=== PATIENT | male | born 1980 | race Caucasian/White ===

== ENCOUNTER 2017-05-20 18:24 | Emergency (ER) | payer BC ==
[2017-05-20 18:33] VITALS: BP 118/86
[2017-05-20] MEDS ORDERED: Sodium Chloride 0.9% 1,000 ML IV ONE (18:48)
--- NOTE | 2017-05-20 19:15 | EDM.PDOCBH ---
ED HPI GENERAL MEDICAL PROBLEM - General Chief Complaint: Behavioral/Psych Stated Complaint: MIN AMBULANCE Time Seen by Provider: 05/20/17 18:53 Source of Information: Reports: Patient, EMS, Family History Limitations: Reports: Intoxication - History of Present Illness INITIAL COMMENTS - FREE TEXT/NARRATIVE: The patient presents by [facility] for a possible overdose. He says today he got in an argument with his partner and he drank some alcohol. He also took some pills. He texted his mom he took 20 xanax and 209 tablets of metoprolol. Ambulance was called and they found out it was more like 20 xanax and 50 of metoprolol. When I went to talk to the patient he said it was more like 3 of xanax and no metoprolol. He says he was being dramatic. He was not trying to hurt himself. He has no headache, fever, chills, cough, chest pain, shortness of breath, abdominal pain, nausea or vomiting. He does admit to drinking to much alcohol. He drank some vodka and other alcohol. Onset: Gradual Duration: Hour(s): Severity: Moderate Improves with: Reports: None Worsens with: Reports: None Associated Symptoms: Reports: No Other Symptoms Treatments [employer]: Reports: IV/IO - Related Data Allergies Allergy/AdvReac Type Severity Reaction Status Date / Time No Known Allergies Allergy Verified 05/20/17 18:28 Home Meds: Home Meds Emtricitab/Rilpivirine/Tenofov [Complera] 1 tab PO DAILY 10/08/15 [History] Fish Oil/Borage/Flax/Om3,6,9#1 [[place]co 3-6-9 1,200 mg Softgel] 1 tab PO DAILY 07/20 [History] Metoprolol Succinate 50 mg PO BID 10/08/15 [History] Multivitamin [Gummi Bear Multivitamin] 1 tab PO DAILY 10/08/15 [History] Ubidecarenone [Co Q-10] 100 mg PO DAILY 10/08/15 [History] atorvaSTATin [Lipitor] 20 mg PO DAILY 10/08/15 [History] Escitalopram [Lexapro] 10 mg PO DAILY 05/20/17 [History] Past Medical History Cardiovascular History: Reports: High Cholesterol, Hypertension Other Gastrointestinal History: colitis Psychiatric History: Reports: Addiction, Depression Immunologic History: Reports: AIDS, HIV - Infectious Disease History Infectious Disease History: Reports: HIV-Human Immunodeficiency Virus - Past Surgical History GI Surgical History: Reports: Hernia Repair/Other Social & Family History - Family History Cardiac: Reports: High Cholesterol, Hypertension, MA - Tobacco Use Smoking Status *Q: Current Every Day Smoker Years of Tobacco use: 25 Packs/Tins Daily: 0.5 - Caffeine Use Caffeine Use: Reports: None - Alcohol Use Days Per Week of Alcohol Use: 7 Number of Drinks Per Day: 15 Total Drinks Per Week: 105 - Recreational Drug Use Recreational Drug Use: Yes Drug Use in Last 12 Months: Yes Recreational Drug Type: Reports: Marijuana/Hashish Recreational Drug Use Frequency: Daily ED ROS GENERAL - Review of Systems Review Of Systems: See Below Constitutional: Reports: No Symptoms HEENT: Reports: No Symptoms Respiratory: Reports: No Symptoms Cardiovascular: Reports: No Symptoms Endocrine: Reports: No Symptoms GI/Abdominal: Reports: No Symptoms : Reports: No Symptoms Musculoskeletal: Reports: No Symptoms Skin: Reports: No Symptoms Neurological: Reports: No Symptoms ED EXAM, BEHAVIORAL HEALTH - Physical Exam Exam: See Below Exam Limited By: Intoxication General Appearance: Alert, No Apparent Distress Ears: Normal External Exam Nose: Normal Inspection Head: Atraumatic, Normocephalic Neck: Normal Inspection Respiratory/Chest: No Respiratory Distress, Lungs Clear, Normal Breath Sounds Cardiovascular: Regular Rate, Rhythm, No Edema, No Murmur GI/Abdominal: Soft, Non-Tender, No Organomegaly, No Mass Back Exam: Normal Inspection Extremities: Normal Inspection Neurological: Alert, No Motor/Sensory Deficits, Oriented x 3, Other (Slurred speech) COURSE, BEHAVIORAL HEALTH COMP - Course Vital Signs: Last Vital Signs Temp 97.9 F 05/20/17 18:28 Pulse 77 05/20/17 18:28 Resp 15 05/20/17 18:28 BP 118/86 05/20/17 18:28 Pulse Ox 95 05/20/17 18:28 Orders, Labs, Meds: Active Orders 24 hr Category Date Time Status Blood Glucose Check, Bedside [RC] ONETIME Care 05/20/17 18:53 Active Cardiac Monitoring [RC] . DIRECTED Care 05/20/17 18:53 Active EKG 12 Lead [EKG Documentation Completion] [RC] STAT Care 05/20/17 18:47 Active Peripheral IV Care [RC] . DIRECTED Care 05/20/17 20:24 Ordered Chest 1V Frontal [CR] Stat Exams 05/20/17 18:43 Taken Sodium Chloride 0.9% [Saline Flush] Med 05/20/17 20:23 Ordered 10 ml FLUSH ASDIRECTED PRN Peripheral IV Insertion Adult [OM.PC] Routine Oth 05/20/17 20:23 Ordered Medication Orders Sodium Chloride (Saline Flush) 10 ml FLUSH ASDIRECTED PRN PRN Reason: Keep Vein Open Laboratory Tests 05/20/17 05/20/17 05/20/17 Range/Units 18:50 18:50 18:50 WBC 8.67 (4.23-9.07) K/mm3 RBC 5.10 (4.63-6.08) M/mm3 Hgb 16.0 (13.7-17.5) gm/L Hct 47.7 (40.1-51.0) % MCV 93.5 H (79.0-92.2) fl MCH 31.4 (25.7-32.2) pg MCHC 33.5 (32.2-35.5) g/dl RDW Std Deviation 47.2 H (35.1-43.9) fL Plt Count 182 (163-337) K/mm3 MPV 11.2 (9.4-12.3) fl Neut % (Auto) 53.8 (34.0-67.9) % Lymph % (Auto) 33.1 (21.8-53.1) % O'Brien % (Auto) 8.0 (5.3-12.2) % Eos % (Auto) 4.7 (0.8-7.0) Baso % (Auto) 0.2 (0.1-1.2) % Neut # (Auto) 4.66 (1.78-5.38) K/mm3 Lymph # (Auto) 2.87 (1.32-3.57) K/mm3 O'Brien # (Auto) 0.69 (0.30-0.82) K/mm3 Eos # (Auto) 0.41 (0.04-0.54) K/mm3 Baso # (Auto) 0.02 (0.01-0.08) K/mm3 Sodium 143 (136-145) mEq/L Potassium 4.0 (3.5-5.1) mEq/L Chloride 108 H (98-107) mEq/L Carbon Dioxide 25 (21-32) mEq/L Anion Gap 14.0 (5-15) BUN 9 (7-18) mg/dL Creatinine 1.2 (0.7-1.3) mg/dL Est Cr Clr Drug Dosing 82.65 mL/min Estimated GFR (MDRD) > 60 (>60) mL/min BUN/Creatinine Ratio 7.5 L (14-18) Glucose 94 (74-106) mg/dL POC Glucose (70-105) mg/dL Calcium 8.6 (8.5-10.1) mg/dL Total Bilirubin 0.4 (0.2-1.0) mg/dL AST 47 H (15-37) U/L ALT 70 H (16-63) U/L Alkaline Phosphatase 92 (46-116) U/L Total Protein 7.6 (6.4-8.2) g/dl Albumin 3.7 (3.4-5.0) g/dl Globulin 3.9 gm/dL Albumin/Globulin Ratio 1.0 (1-2) Salicylates (2.8-20) mg/dL Urine Opiates Screen Negative (NEGATIVE) Ur Buprenorphine Scrn Negative (NEGATIVE) Ur Oxycodone Screen Negative (NEGATIVE) Urine Methadone Screen Negative (NEGATIVE) Ur Propoxyphene Screen Negative (NEGATIVE) Acetaminophen 0 L (10-30) ug/mL Ur Barbiturates Screen Negative (NEGATIVE) Ur Tricyclics Screen Negative (NEGATIVE) Ur Phencyclidine Scrn Negative (NEGATIVE) Ur Amphetamine Screen Negative (NEGATIVE) U Methamphetamines Scrn Negative (NEGATIVE) U Benzodiazepines Scrn Presumptive positive H (NEGATIVE) U Cocaine Metab Screen Negative (NEGATIVE) U Marijuana (THC) Screen Presumptive positive H (NEGATIVE) Ethyl Alcohol 0.19 (0.00) gm% 05/20/17 05/20/17 Range/Units 18:50 19:19 WBC (4.23-9.07) K/mm3 RBC (4.63-6.08) M/mm3 Hgb (13.7-17.5) gm/L Hct (40.1-51.0) % MCV (79.0-92.2) fl MCH (25.7-32.2) pg MCHC (32.2-35.5) g/dl RDW Std Deviation (35.1-43.9) fL Plt Count (163-337) K/mm3 MPV (9.4-12.3) fl Neut % (Auto) (34.0-67.9) % Lymph % (Auto) (21.8-53.1) % O'Brien % (Auto) (5.3-12.2) % Eos % (Auto) (0.8-7.0) Baso % (Auto) (0.1-1.2) % Neut # (Auto) (1.78-5.38) K/mm3 Lymph # (Auto) (1.32-3.57) K/mm3 O'Brien # (Auto) (0.30-0.82) K/mm3 Eos # (Auto) (0.04-0.54) K/mm3 Baso # (Auto) (0.01-0.08) K/mm3 Sodium (136-145) mEq/L Potassium (3.5-5.1) mEq/L Chloride (98-107) mEq/L Carbon Dioxide (21-32) mEq/L Anion Gap (5-15) BUN (7-18) mg/dL Creatinine (0.7-1.3) mg/dL Est Cr Clr Drug Dosing mL/min Estimated GFR (MDRD) (>60) mL/min BUN/Creatinine Ratio (14-18) Glucose (74-106) mg/dL POC Glucose 85 (70-105) mg/dL Calcium (8.5-10.1) mg/dL Total Bilirubin (0.2-1.0) mg/dL AST (15-37) U/L ALT (16-63) U/L Alkaline Phosphatase (46-116) U/L Total Protein (6.4-8.2) g/dl Albumin (3.4-5.0) g/dl Globulin gm/dL Albumin/Globulin Ratio (1-2) Salicylates 4.1 (2.8-20) mg/dL Urine Opiates Screen (NEGATIVE) Ur Buprenorphine Scrn (NEGATIVE) Ur Oxycodone Screen (NEGATIVE) Urine Methadone Screen (NEGATIVE) Ur Propoxyphene Screen (NEGATIVE) Acetaminophen (10-30) ug/mL Ur Barbiturates Screen (NEGATIVE) Ur Tricyclics Screen (NEGATIVE) Ur Phencyclidine Scrn (NEGATIVE) Ur Amphetamine Screen (NEGATIVE) U Methamphetamines Scrn (NEGATIVE) U Benzodiazepines Scrn (NEGATIVE) U Cocaine Metab Screen (NEGATIVE) U Marijuana (THC) Screen (NEGATIVE) Ethyl Alcohol (0.00) gm% Medications Generic Name Dose Route Start Last Admin Trade Name Freq PRN Reason Stop Dose Admin Sodium Chloride 10 ml 05/20/17 20:23 Saline Flush FLUSH ASDIRECTED PRN Keep Vein Open Discontinued Medications Generic Name Dose Route Start Last Admin Trade Name Freq PRN Reason Stop Dose Admin Calcium Gluconate 3 gm 05/20/17 20:19 Calcium Gluconate IV 05/20/17 20:20 ONETIME ONE Charcoal 90 gm 05/20/17 20:15 Actidose-Aqua PO 05/20/17 20:16 ONETIME ONE Sodium Chloride 1,000 mls @ 999 mls/hr 05/20/17 18:48 05/20/17 18:57 Normal Saline IV 05/20/17 19:48 999 mls/hr ONETIME ONE Administration Re-Assessment/Re-Exam: I ordered an IV NS, EKG, CXR, and labs. Poison control was contacted and the big concern is the metoprolol he may of may not have taken. His CXR looks good. His EKG shows a NSR with no acute changes. His CBC is negative. His point of care glucose is 85. His glucose on the CMP was 94. His AST was slightly elevated at 47. His ALT was elevated at 70. His salicylates and acetaminophen is negative. He was presumptive positive for benzos and marijuana. His EOTH was 0.19. My nurse did a count and he is missing 34 of his metoprolol. He should only have 14 missing so he could have taken 20. There were other metoprolol missing from prior prescriptions. He also had all of his 180 xanax missing. He got that prescription back in November. Poison control recommended activated charcoal and calcium gluconate 3 grams IV. I talked with Dr Valdivia and she agreed to the admission. I also ordered another IV. Departure - Departure Time of Disposition: 20:35 Disposition: Admitted As Inpatient 64 Condition: Serious Clinical Impression: Depressive disorder Alcohol intoxication Qualifiers: Complication of substance-induced condition: uncomplicated Qualified Code(s): F10.120 - Alcohol abuse with intoxication, uncomplicated Drug overdose Qualifiers: Encounter type: initial encounter Injury intent: intentional self-harm Qualified Code(s): T50.902A - Poisoning by unspecified drugs, medicaments and biological substances, intentional self-harm, initial encounter - Discharge Information Forms: ED Department Discharge - My Orders Last 24 Hours: My Active Orders 05/20/17 20:23 Sodium Chloride 0.9% [Saline Flush] 10 ml FLUSH ASDIRECTED PRN Peripheral IV Insertion Adult [OM.PC] Routine 05/20/17 20:24 Peripheral IV Care [RC] . DIRECTED - Assessment/Plan Last 24 Hours: My Active Orders 05/20/17 20:23 Sodium Chloride 0.9% [Saline Flush] 10 ml FLUSH ASDIRECTED PRN Peripheral IV Insertion Adult [OM.PC] Routine 05/20/17 20:24 Peripheral IV Care [RC] . DIRECTED
[2017-05-20 19:31] LABS: ACETAMINOPHEN 0 ug/mL (10-30)
[2017-05-20] MEDS ORDERED: Activated Charcoal/Water Susp 50 GM/240 ML Tube PO ONE (20:15)
[2017-05-20] MEDS ORDERED: Calcium Gluconate 10% 1 GM/10 ML SDV IV ONE (20:19)
[2017-05-20] MEDS ORDERED: Sodium Chloride 0.9% 10 ML Syringe FLUSH PRN (20:23)
[2017-05-20] MEDS ORDERED: Sodium Chloride 0.9% 50 ML ONE (20:38)
[2017-05-20] MEDS ORDERED: Sodium Chloride 0.9% 100 ML ONE (20:40)
[2017-05-20] MEDS ORDERED: Sodium Chloride 0.9% 1,000 ML IV SCH ×2 (20:45→22:00)
[2017-05-20] MEDS ORDERED: Calcium Gluconate 3 GM in Sodium Chloride 0.9% 100 ML IV ONE (20:45)
[2017-05-20] MEDS ORDERED: Activated Charcoal/Sorbitol Susp 50 GM/240 ML Bottle PO ONE (20:47)
[2017-05-20] MEDS ORDERED: EPINEPHrine 1 MG in Dextrose 5% in Water 99 ML IV SCH ×2 (22:15)
[2017-05-20] MEDS ORDERED: SODIUM CHLORIDE 0.9% IV SCH (22:15)
[2017-05-20] MEDS ORDERED: GLUCAGON HUMAN RECOMBINANT IV SCH (22:15)
[2017-05-20] MEDS ORDERED: Glucagon,Human Recombinant 1 MG Vial IV ONE (22:15)
[2017-05-20] MEDS ORDERED: Nicotine 21 MG/24 Hr Patch TRDERM SCH (22:15)
[2017-05-21] MEDS ORDERED: Albuterol 0.5% 2.5 MG/0.5 ML Neb Soln NEB SCH (02:00)
--- NOTE | 2017-05-21 07:32 | CR ---
Chest: Portable view of the chest was obtained. Comparison: Prior chest x-ray of 11/28/15. Heart size and mediastinum are normal. Lungs are clear. Bony structures are grossly intact. Impression: 1. Nothing acute is identified on portable chest x-ray. Diagnostic code #1
[2017-05-21] MEDS ORDERED: Enoxaparin 40 MG/0.4 ML Syringe SUBCUT SCH (09:00)
== END 2017-05-21 00:18 | disposition critical access hospital (66) ==
LOC: JD.ED 18:24
DX: T42.4X2A Poisoning by benzodiazepines, intentional self-harm, initial encounter (principal); T44.7X2A Poisoning by beta-adrenoreceptor antagonists, intentional self-harm, initial encounter; F10.120 Alcohol abuse with intoxication, uncomplicated; E78.00 Pure hypercholesterolemia, unspecified; B20 Human immunodeficiency virus [HIV] disease; I10 Essential (primary) hypertension; F17.210 Nicotine dependence, cigarettes, uncomplicated; Z79.899 Other long term (current) drug therapy
CPT/HCPCS: 36415; 71045; 80053; 80306; 82962; 85025; 93005; 96360; 96361; 96365; 96366; 99285; G0480; J0610; J7030; J7040; J7050

== ENCOUNTER 2019-11-10 22:31 | Emergency (ER) | payer BC, OTHER ==
[2019-11-10] MEDS ORDERED: Sodium Chloride 0.9% 10 ML Syringe FLUSH PRN (22:50)
[2019-11-10] MEDS ORDERED: Sodium Chloride 0.9% 1,000 ML IV SCH (23:00)
--- NOTE | 2019-11-10 23:38 | EDM.PDOC ---
ED HPI GENERAL MEDICAL PROBLEM - General Source of Information: Reports: Patient, EMS, Family (mother), RN Notes Reviewed <Nahid Lancaster - Last Filed: 11/11/19 06:56> <Misael Segura - Last Filed: 11/11/19 08:40> - General Chief Complaint: Drug or Alcohol Abuse Stated Complaint: MIN AMBULANCE Time Seen by Provider: 11/10/19 22:41 - History of Present Illness INITIAL COMMENTS - FREE TEXT/NARRATIVE: 39 yr old male has been brought by EMS after found lying on a gravel road outside his car somewhere near [place]. He had previously texted and called family members that he "wants to " He has been drinking vodka, is reported to have also "taken a bunch of xanex, aleve PM, possibly some opiods" in addition to "acid and meth". His mother states she has been out of town for a few days but know he has been feeling depressed with hx of depression. He has been on lexapro in the past but tells us on arrival to ED he has not been taking that recently. Mother states he just found out today that one of his good friends only has 3 weeks to live so she thinks that is an extra stress for him. (Nahid Lancaster) - Related Data Allergies Allergy/AdvReac Type Severity Reaction Status Date / Time No Known Allergies Allergy Verified 05/20/17 18:28 Home Meds: Home Meds Emtricita/Rilpivirine/Tenof Df [Complera] 1 tab PO DAILY 10/08/15 [History] Fish Oil/Borage/Flax/Om3,6,9 1 [Tyler 3-6-9 1,200 mg Softgel] 1 tab PO DAILY 10/08/15 [History] Multivitamin [Gummi Bear Multivitamin] 1 tab PO DAILY 10/08/15 [History] Ubidecarenone [Co Q-10] 100 mg PO DAILY 10/08/15 [History] atorvaSTATin [Lipitor] 20 mg PO DAILY 10/08/15 [History] Escitalopram [Lexapro] 10 mg PO DAILY 05/20/17 [History] Metoprolol Tartrate 100 mg PO DAILY 05/20/17 [History] Metoprolol Tartrate 50 mg PO BEDTIME 11/04/17 [History] Past Medical History Cardiovascular History: Reports: High Cholesterol, Hypertension Gastrointestinal History: Reports: Diverticulosis Other Gastrointestinal History: colitis Genitourinary History: Reports: Acute Renal Failure Neurological History: Reports: Seizure Psychiatric History: Reports: Addiction, Anxiety, Depression, Hallucinations Immunologic History: Reports: AIDS, HIV - Infectious Disease History Infectious Disease History: Reports: HIV-Human Immunodeficiency Virus (diagnosed 2004. No history of AIDS.) - Past Surgical History Male Surgical History: Reports: Other (See Below) (hydrocele at 3 years old) <Nahid Lancaster Maximo Tony Filed: 11/11/19 06:56> Social & Family History - Family History Cardiac: Reports: High Cholesterol, Hypertension, [place] - Tobacco Use Smoking Status *Q: Current Every Day Smoker Years of Tobacco use: 20 Packs/Tins Daily: 1 - Caffeine Use Caffeine Use: Reports: Coffee - Recreational Drug Use Recreational Drug Type: Reports: Mescaline, Methamphetamine Other Recreational Drug Type: AMBULANCEE REPORTS THIS-PT DOESN'T RESPOND WITH AN ANSWER WHEN ASKED - Living Situation & Occupation Living situation: Reports: Single Occupation: Employed (taxation consultant) <TonnyNahid Marsh Tony Filed: 11/11/19 06:56> ED ROS GENERAL - Review of Systems Review Of Systems: Unable To Obtain Reason Not Obtained: altered mental status <TonnyNahid Jimenez Filed: 11/11/19 06:56> - Physical Exam Exam: See Below General Appearance: Other (awake on arrival to ED but drowsy, does answer simple questions) Ears: Normal External Exam Nose: Normal Inspection Head Exam: Atraumatic Neck: Supple Respiratory/Chest: No Respiratory Distress, Lungs Clear, Normal Breath Sounds. No: Rhonchi, Wheezing Cardiovascular: Tachycardia GI/Abdominal: Soft, Non-Tender Neuro Exam (Abbreviated): Other (pt is very drowsy, arouseable, does answer a few yes and no questions but not talkative at time of arrival to ED and initial exam) Extremities: Normal Inspection Skin Exam: Warm, Dry, Normal Color <TonnyNahid L Smitha Jimenez Filed: 11/11/19 06:56> EKG INTERPRETATION EKG Date: 11/10/19 Rhythm: Other (sinus tach, rate 101) [place]: Normal P-Wave: Present QRS: Normal ST-T: Normal <TonnyNahid coulter - Last Filed: 11/11/19 06:56> Course <Nahid Lancaster - Last Filed: 11/11/19 06:56> <Misael Segura - Last Filed: 11/11/19 08:40> - Vital Signs Last Recorded V/S: Last Vital Signs Temp 36.2 C 11/10/19 22:41 Pulse 80 11/11/19 06:24 Resp 20 11/11/19 06:24 BP 107/66 11/11/19 06:24 Pulse Ox 97 11/11/19 06:24 - Orders/Labs/Meds Orders: Active Orders 24 hr Category Date Time Status EKG 12 Lead [EKG Documentation Completion] [RC] STAT Care 11/10/19 22:49 Active Peripheral IV Care [RC] . DIRECTED Care 11/10/19 22:50 Active Consult to Case Management/Business Development Engineer [CONS] Cons 11/11/19 06:39 Active Routine Dextrose 5%-Lactated Ringers 1,000 ml Med 11/11/19 06:00 Active IV ASDIRECTED Lactated Ringers [Ringers, Lactated] 1,000 ml Med 11/11/19 02:15 Active IV ASDIRECTED Sodium Chloride 0.9% [Normal Saline] 1,000 ml Med 11/10/19 23:00 Active IV ONETIME Sodium Chloride 0.9% [Saline Flush] Med 11/10/19 22:50 Active 10 ml FLUSH ASDIRECTED PRN Peripheral IV Insertion Adult [OM.PC] Stat Oth 11/10/19 22:50 Ordered Medication Orders Sodium Chloride (Normal Saline) 1,000 mls @ 999 mls/hr IV ONETIME CRISTINA Last Admin: 11/10/19 22:59 Dose: 999 mls/hr Documented by: MEI Lactated Ringer's (Ringers, Lactated) 1,000 mls @ 500 mls/hr IV ASDIRECTED CRISTINA Last Admin: 11/11/19 03:42 Dose: 500 mls/hr Documented by: BRANDEN Dextrose/Lactated Ringer's (Dextrose 5%-Lactated Ringers) 1,000 mls @ 150 mls/hr IV ASDIRECTED CRISTINA Last Admin: 11/11/19 06:21 Dose: 150 mls/hr Documented by: BRANDEN Sodium Chloride (Saline Flush) 10 ml FLUSH ASDIRECTED PRN PRN Reason: Keep Vein Open Last Admin: 11/10/19 22:59 Dose: 10 ml Documented by: MEI Labs: Laboratory Tests 11/10/19 11/10/19 11/10/19 Range/Units 23:13 23:30 23:30 WBC 22.41 H (4.23-9.07) K/mm3 RBC 4.72 (4.63-6.08) M/mm3 Hgb 15.1 (13.7-17.5) gm/dl Hct 44.1 (40.1-51.0) % MCV 93.4 H (79.0-92.2) fl MCH 32.0 (25.7-32.2) pg MCHC 34.2 (32.2-35.5) g/dl RDW Std Deviation 43.8 (35.1-43.9) fL Plt Count 238 (163-337) K/mm3 MPV 11.0 (9.4-12.3) fl Neut % (Auto) 81.3 H (34.0-67.9) % Lymph % (Auto) 9.2 L (21.8-53.1) % Andrews % (Auto) 8.2 (5.3-12.2) % Eos % (Auto) 0.8 (0.8-7.0) Baso % (Auto) 0.2 (0.1-1.2) % Neut # (Auto) 18.23 H (1.78-5.38) K/mm3 Lymph # (Auto) 2.06 (1.32-3.57) K/mm3 Andrews # (Auto) 1.84 H (0.30-0.82) K/mm3 Eos # (Auto) 0.17 (0.04-0.54) K/mm3 Baso # (Auto) 0.04 (0.01-0.08) K/mm3 Manual Slide Review Abnormal smear Sodium 146 H (136-145) mEq/L Potassium 3.3 L (3.5-5.1) mEq/L Chloride 106 (98-107) mEq/L Carbon Dioxide 24 (21-32) mEq/L Anion Gap 19.3 H (5-15) BUN 18 (7-18) mg/dL Creatinine 1.4 H (0.7-1.3) mg/dL Est Cr Clr Drug Dosing 69.44 mL/min Estimated GFR (MDRD) 56 (>60) mL/min BUN/Creatinine Ratio 12.9 L (14-18) Glucose 111 H (74-106) mg/dL Calcium 8.0 L (8.5-10.1) mg/dL Magnesium (1.8-2.4) mg/dl Total Bilirubin 0.7 (0.2-1.0) mg/dL AST 31 (15-37) U/L ALT 24 (16-63) U/L Alkaline Phosphatase 47 (46-116) U/L Total Protein 7.0 (6.4-8.2) g/dl Albumin 4.0 (3.4-5.0) g/dl Globulin 3.0 gm/dL Albumin/Globulin Ratio 1.3 (1-2) Urine Opiates Screen Negative (OBLPCJ=385) Ur Buprenorphine Scrn Negative (CUTOFF=10) Ur Oxycodone Screen Negative (ESG9AA=433) Urine Methadone Screen Negative (FSO5VM=920) Ur Propoxyphene Screen Negative (YWELAI=255) Acetaminophen (10-30) ug/mL Ur Barbiturates Screen Negative (EFMQJH=479) Ur Tricyclics Screen Negative (XPFUCS=636) Ur Phencyclidine Scrn Negative (CUTOFF=25) Ur Amphetamine Screen Presumptive positive H (EKXELA=543) U Methamphetamines Scrn Negative (ADPSGG=076) U Benzodiazepines Scrn Presumptive positive H (YFOTDS=372) U Cocaine Metab Screen Negative (SSECWA=448) U Marijuana (THC) Screen Presumptive positive H (CUTOFF=50) Ethyl Alcohol 0.24 (0.00) gm% COVID-19 (DEANA) (NEGATIVE) 11/10/19 11/10/19 11/11/19 Range/Units 23:30 23:30 06:20 WBC (4.23-9.07) K/mm3 RBC (4.63-6.08) M/mm3 Hgb (13.7-17.5) gm/dl Hct (40.1-51.0) % MCV (79.0-92.2) fl MCH (25.7-32.2) pg MCHC (32.2-35.5) g/dl RDW Std Deviation (35.1-43.9) fL Plt Count (163-337) K/mm3 MPV (9.4-12.3) fl Neut % (Auto) (34.0-67.9) % Lymph % (Auto) (21.8-53.1) % Andrews % (Auto) (5.3-12.2) % Eos % (Auto) (0.8-7.0) Baso % (Auto) (0.1-1.2) % Neut # (Auto) (1.78-5.38) K/mm3 Lymph # (Auto) (1.32-3.57) K/mm3 Andrews # (Auto) (0.30-0.82) K/mm3 Eos # (Auto) (0.04-0.54) K/mm3 Baso # (Auto) (0.01-0.08) K/mm3 Manual Slide Review Sodium (136-145) mEq/L Potassium (3.5-5.1) mEq/L Chloride (98-107) mEq/L Carbon Dioxide (21-32) mEq/L Anion Gap (5-15) BUN (7-18) mg/dL Creatinine (0.7-1.3) mg/dL Est Cr Clr Drug Dosing mL/min Estimated GFR (MDRD) (>60) mL/min BUN/Creatinine Ratio (14-18) Glucose (74-106) mg/dL Calcium (8.5-10.1) mg/dL Magnesium 1.9 (1.8-2.4) mg/dl Total Bilirubin (0.2-1.0) mg/dL AST (15-37) U/L ALT (16-63) U/L Alkaline Phosphatase (46-116) U/L Total Protein (6.4-8.2) g/dl Albumin (3.4-5.0) g/dl Globulin gm/dL Albumin/Globulin Ratio (1-2) Urine Opiates Screen (GBSQVA=350) Ur Buprenorphine Scrn (CUTOFF=10) Ur Oxycodone Screen (UEJ9PN=117) Urine Methadone Screen (ACJ5WV=934) Ur Propoxyphene Screen (MPWYCQ=494) Acetaminophen 0 L (10-30) ug/mL Ur Barbiturates Screen (JLLSWN=719) Ur Tricyclics Screen (JEZMKA=900) Ur Phencyclidine Scrn (CUTOFF=25) Ur Amphetamine Screen (RCDPFM=350) U Methamphetamines Scrn (DATTBM=109) U Benzodiazepines Scrn (DYCCDQ=620) U Cocaine Metab Screen (IMYQLK=925) U Marijuana (THC) Screen (CUTOFF=50) Ethyl Alcohol (0.00) gm% COVID-19 (DEANA) Negative (NEGATIVE) Meds: Medications Generic Name Dose Route Start Last Admin Trade Name Freq PRN Reason Stop Dose Admin Sodium Chloride 1,000 mls @ 999 mls/hr 11/10/19 23:00 11/10/19 22:59 Normal Saline IV 999 mls/hr ONETIME CRISTINA Administration Lactated Ringer's 1,000 mls @ 500 mls/hr 11/11/19 02:15 11/11/19 03:42 Ringers, Lactated IV 500 mls/hr ASDIRECTED CRISTINA Administration Dextrose/Lactated Ringer's 1,000 mls @ 150 mls/hr 11/11/19 06:00 11/11/19 06:21 Dextrose 5%-Lactated Ringers IV 150 mls/hr ASDIRECTED CRISTINA Administration Sodium Chloride 10 ml 11/10/19 22:50 11/10/19 22:59 Saline Flush FLUSH 10 ml ASDIRECTED PRN Administration Keep Vein Open Discontinued Medications Generic Name Dose Route Start Last Admin Trade Name Freq PRN Reason Stop Dose Admin Lactated Ringer's 1,000 mls @ 999 mls/hr 11/11/19 00:09 11/11/19 00:49 Ringers, Lactated IV 11/11/19 01:09 999 mls/hr .BOLUS ONE Administration - Re-Assessments/Exams Free Text/Narrative Re-Assessment/Exam: 11/11/19 01:30. blood alcohol 0.25. Drug screen pos for meth, benzo., marijuana. Current vitals 102/76, 91, 02 sat 92 %. Acetaminophen level zero. Moderately dehydrated with anion gap of 18. Have given 1 liter NS, 1 liter LR, will now go to LR at 150 per hr. He has been sleeping and continues to sleep. Will continue to treat until AM, see what his status is at that time and than work on appropriate disposition. 11/11/19 06:32. Pt readily awakened. Answering questions appropriately. Remembers last evening. States he drank too much alcohol, was stressed over trying to deal with a friend that is dying from cancer. He denies feeling suicidal this morning now that the alcohol is wearing off. He states he does not want to , it was the alcohol that made him make those statements last evening. Will continue to hold him here in the ED and have one of our social workers visit with him when arrive in about an hour to make sure there is a safe plan. 07:00. It is time for change of shift. Will transfer care to Dr Segura. (Nahid Lancaster) Free Text/Narrative Re-Assessment/Exam: 11/11/19 08:38 The patient was evaluated by social work and feels he is safe to be discharged to the community. He agrees to follow-up with angela hinojosa and start going to AA again it has been 3 months since he is gone. I discussed the situation with the patient and to me he absolutely adamantly denies any suicidal wishes or intent. And he agrees to return to the emergency room if he ever starts feeling this way again. Alcohol and drugs tend to bring this on for him. The patient agrees to drinking does not fix anything, and will start going to AA again. He is scheduled to see Angela hinojosa today. (Misael Segura) Departure <Nahid Lancaster - Last Filed: 11/11/19 06:56> - Departure Time of Disposition: 08:39 <Misael Segura - Last Filed: 11/11/19 08:40> - Departure Disposition: Home, Self-Care 01 Clinical Impression: Alcoholism, Benzodiazepine abuse Alcoholic intoxication Qualifiers: Complication of substance-induced condition: uncomplicated Qualified Code(s): F10.120 - Alcohol abuse with intoxication, uncomplicated - Discharge Information Referrals: PCP,Unknown [Primary Care Provider] - Additional Instructions: Return to the emergency room with any questions problems or worsening symptoms return with any thoughts of hurting yourself or anyone else. Follow-up with angela hinojosa today as we discussed. Start going to AA again immediately. Sepsis Event Note (ED) - Evaluation Sepsis Screening Result: No Definite Risk <Nahid Lancaster - Last Filed: 11/11/19 06:56> - Focused Exam Vital Signs: Vital Signs Temp Pulse Resp BP Pulse Ox 11/11/19 06:24 80 20 107/66 97 11/11/19 05:13 77 20 101/64 96 11/11/19 03:41 85 18 99/64 95 11/11/19 00:10 89 16 102/84 92 L 11/10/19 22:41 36.2 C 107 H 18 135/69 91 L
[2019-11-11] MEDS ORDERED: Lactated Ringers 1,000 ML IV ONE (00:09)
[2019-11-11] MEDS ORDERED: Lactated Ringers 1,000 ML IV SCH (02:15)
[2019-11-11] MEDS ORDERED: Dextrose 5%-Lactated Ringers 1,000 ML IV SCH (06:00)
[2019-11-11 06:25] VITALS: BP 107/66; PULSE 80
== END 2019-11-11 12:29 | disposition home or self-care (01) ==
LOC: JD.ED 22:31
DX: F10.220 Alcohol dependence with intoxication, uncomplicated (principal); F13.10 Sedative, hypnotic or anxiolytic abuse, uncomplicated; E78.00 Pure hypercholesterolemia, unspecified; I10 Essential (primary) hypertension; F41.9 Anxiety disorder, unspecified; F32.9 Major depressive disorder, single episode, unspecified; F17.210 Nicotine dependence, cigarettes, uncomplicated; Z79.899 Other long term (current) drug therapy; B20 Human immunodeficiency virus [HIV] disease; Z20.828 Contact with and (suspected) exposure to other viral communicable diseases
CPT/HCPCS: 36415; 80053; 80306; 80307; 83735; 85025; 87635; 93005; 96360; 96361; 99284; J7030; J7120; J7121; 93010; U0002